=== PATIENT | male | born 1940 | race Caucasian/White ===

== ENCOUNTER 2020-07-15 15:48 | Inpatient (IN) | payer OTHER ==
[~2020-07-15] VITALS: Ht 170.2 cm; Wt 104.3 kg
[~2020-07-15 15:48] MED LIST: AMARYL2 MG PO; ANCEF 1GM1 GM/50 M2 IV; CARDURA8 MG PO; LEVEMIR SUBQ; NEURONTIN 300300 M1 PO; NORVASC 5 MG TAB5 MG PO; NORVASC5 MG PO; NOVOLOG100 UNIT/1 SUBQ; PERCOCET 5-3251 EACH PO; TOPROL XL100 MG PO; VALSARTAN-HCTZ1 EAC3 PO
[2020-07-15 16:21] LABS: ABSOLUTE EOSINOPHILS 0.2 thou/uL (0.0-0.7); ABSOLUTE LYMPHOCYTES 1.6 thou/uL (0.8-5.3); ABSOLUTE MONOCYTES 0.7 thou/uL (0.0-1.2); ABSOLUTE NEUTROPHILS 5.5 thou/uL (1.6-8.1); BASOPHILS 0.6 %; EOSINOPHILS 2.3 %; HEMATOCRIT 31.9 % (42.0-52.0); HEMOGLOBIN 10.2 gm/dL (14.0-18.0); LYMPHOCYTES 20.4 %; MCH 25.9 pg (26.0-34.0); MCHC 31.9 g/dL (28.0-37.0); MCV 81.2 fL (80.0-100.0); MONOCYTES 8.8 %; MPV 7.4 fl. (7.2-11.1); NUCLEATED RBCS 0 /100WBC; PLATELET COUNT* 284 thou/uL (150-400); POLYS 67.9 %; RBC 3.93 mil/uL (4.50-6.00)
[2020-07-15 16:27] LABS: BE 2.4 mmol/L (-2 to +3); PCO2 41.7 mmHg (35.0-45.0); pH 7.428 (7.340-7.450)
[2020-07-15 16:29] LABS: CALCIUM 9.2 mg/dL (8.5-10.1); CREATININE 1.2 mg/dL (0.6-1.3); POTASSIUM 3.6 mmol/L (3.5-5.1)
[2020-07-15 16:31] LABS: PO2 57.4 mmHg (75.0-100.0)
[2020-07-15 16:40] LABS: ALBUMIN 3.7 g/dL (3.4-5.0); TOTAL BILIRUBIN 0.5 mg/dL (<0.1-1.0); TOTAL PROTEIN 7.1 g/dL (6.4-8.2)
[2020-07-15 17:01] LABS: APTT 26.2 Seconds (25.0-31.3); INR 1.2; PROTIME 12.2 Seconds (9.20-11.50)
[2020-07-15 20:11] VITALS: BP 153/38
[2020-07-15] MEDS ORDERED: METFORMIN HCL500 M3 PO (20:56)
[2020-07-15] MEDS ORDERED: SIMVASTATIN80 MG PO (20:56)
[2020-07-15] MEDS ORDERED: HYDROCHLOROTHIA25 M2 PO (20:57)
[2020-07-15] MEDS ORDERED: COZAAR 25 MG TA25 M1 PO (20:57)
[2020-07-15] MEDS ORDERED: POTASSIUM20 PO (20:58)
[2020-07-15 23:48] VITALS: BP 147/45
[2020-07-16 03:43] VITALS: BP 155/47
[2020-07-16 05:57] LABS: CALCIUM 9.4 mg/dL (8.5-10.1); CREATININE 1.1 mg/dL (0.6-1.3); POTASSIUM 3.5 mmol/L (3.5-5.1)
[2020-07-16 06:00] LABS: MAGNESIUM 1.9 mg/dL (1.8-2.4); PHOSPHORUS* 4.1 mg/dL (2.5-4.9)
[2020-07-16 06:17] LABS: BE 5.2 mmol/L (-2 to +3); PCO2 47.9 mmHg (35.0-45.0); pH 7.422 (7.340-7.450)
[2020-07-16 08:00] VITALS: BP 136/58; BP 90/73
[2020-07-16 08:31] LABS: HEMATOCRIT 31.9 % (42.0-52.0); HEMOGLOBIN 10.2 gm/dL (14.0-18.0); MCH 25.8 pg (26.0-34.0); MCHC 31.9 g/dL (28.0-37.0); MCV 80.7 fL (80.0-100.0); MPV 7.7 fl. (7.2-11.1); RBC 3.96 mil/uL (4.50-6.00); WBC 6.7 thou/uL (4.0-11.0)
[2020-07-16 09:10] VITALS: BP 130/64
--- NOTE | 2020-07-16 11:03 | EKG ---
[place] [address] ELECTROCARDIOGRAM REPORT Name: NELLY LIVINGSTON Room: [address] ADM IN .R.#: [id number] Admission: 07/15/20 Attend Phys: Glynn Blum Discharge: Date of : 36 Date of Service: 07/15/20 1613 Report #: [id number] THIS REPORT FOR: //name// 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: CCD : 1940 Requested By: Paul Pastor Order Number: [id number] MD: Tha Greenwood Measurements Intervals [place] Rate: 68 P: [place]: QRS: 14 QRSD: 123 T: 266 QT: 461 QTc: 491 Interpretive Statements Atrial fibrillation Ventricular premature complex Left bundle branch block Baseline wander in lead(s) V5 Compared to ECG 12/05/2013 10:05:08 Ventricular premature complex(es) now present Left bundle-branch block now present Sinus rhythm no longer present Myocardial infarct finding no longer present Electronically Signed On 07-16-2020 11:03:07 DEGREASER by Tha Greenwood [email or web address] <ELECTRONICALLY SIGNED> By: Tha Greenwood MD, [facility] 07/16/20 1103 1613 161 Tha Greenwood MD, [facility] /EPI
[2020-07-16 11:35] VITALS: BP 145/57
--- NOTE | 2020-07-16 13:43 | 2DMMODE ---
[place] [address] 2 D/M-MODE ECHOCARDIOGRAM Name: NELLY LIVINGSTON Room: [address] ADM IN .[place].#: [id number] Admission: 07/15/20 Attend Phys: Glynn Blum Discharge: Date of : 36 Date of Service: 07/16/20 1342 Report #: [id number] THIS REPORT FOR: cc: Davi Bliss,Tha Fernandez MD [facility] ~ APPROVED REPORT Study performed: 07/16/2020 10:29:28 EXAM: Comprehensive 2D, Doppler, and color-flow Echocardiogram Patient Location: In-Patient Room #: [facility] Status: routine BSA: 2.15 HR: 72 bpm BP: 90/73 mmHg Rhythm: Atrial Fibrillation Other Information Study Quality: Good Indications Atrial Fibrillation Dyspnea 2D Dimensions IVSd: 13.43 (7-11mm) LVOT Diam: 20.15 (18-24mm) LVDd: 50.73 mm PWd: 11.94 (7-11mm) Ascending Ao: 34.37 (22-36mm) LVDs: 35.22 (25-40mm) Aortic Root: 32.92 mm Volumes Left Atrial Volume (Systole) LA ESV Index: 61.20 mL/m2 Aortic Valve AoV Peak Jake.: 1.52 m/s AO Peak Gr.: 9.19 mmHg LVOT Max P.84 mmHg AO Mean Gr.: 5.53 mmHg LVOT Mean P.36 mmHg LVOT Max V: 0.84 m/s AO V2 VTI: 36.05 cm LVOT Mean V: 0.52 m/s DARRON (VTI): 1.92 cm2 LVOT V1 VTI: 21.68 [place] [address] 2 D/M-MODE ECHOCARDIOGRAM Name: NELLY LIVINGSTON Room: [address] IN [facility].#: [id number] Admission: 07/15/20 Attend Phys: Glynn Blum Discharge: Date of : 36 Date of Service: 07/16/20 1342 Report #: [id number] TDI Medial E' Jake.: 0.10 m/s Lateral E' Jake.: 0.15 m/s Pulmonary Valve PV Peak Jake.: 1.12 m/s PV Peak Gr.: 5.06 mmHg Tricuspid Valve RAP Estimate: 10.00 mmHg TR Peak Gr.: 47.29 mmHg RVSP: 57.00 mmHg PA Pressure: 57.00 mmHg Left Ventricle The left ventricle is normal size. There is normal LV segmental wall motion. Mild concentric left ventricular hypertrophy. Left ventricular systolic function is normal. LVEF is 55-60%. This study is not technically sufficient to allow evaluation of the LV diastolic function due to atrial fibrillation. Right Ventricle The right ventricle is normal size. The right ventricular systolic function is normal. Atria Left atrium is moderately dilated. Right atrium is mildly dilated. Aortic Valve Mild aortic valve sclerosis. No aortic regurgitation is present. Mild aortic stenosis. Mitral Valve The mitral valve is normal in structure. Mild mitral regurgitation. No evidence of mitral valve stenosis. Tricuspid Valve The tricuspid valve is normal in structure. Mild tricuspid regurgitation. Moderate pulmonary hypertension. The RVSP is 55 mmHg. Pulmonic Valve The pulmonary valve is normal in structure. There is no pulmonic valvular regurgitation. [place] [address] 2 D/M-MODE ECHOCARDIOGRAM Name: NELLY LIVINGSTON Room: [address] IN .R.#: [id number] Admission: 07/15/20 Attend Phys: Glynn Blum Discharge: Date of : 36 Date of Service: 07/16/20 1342 Report #: [id number] The aortic root is normal in size. IVC is dilated and collapses >50% with inspiration. Pericardium There is no pericardial effusion. <Conclusion> The left ventricle is normal size. Mild concentric left ventricular hypertrophy. Left ventricular systolic function is normal. LVEF is 55-60%. This study is not technically sufficient to allow evaluation of the LV diastolic function due to atrial fibrillation. Left atrium is moderately dilated. Right atrium is mildly dilated. Mild aortic valve sclerosis. Mild aortic stenosis. Mild mitral regurgitation. Mild tricuspid regurgitation. Moderate pulmonary hypertension. The RVSP is 55 mmHg. IVC is dilated and collapses >50% with inspiration. <ELECTRONICALLY SIGNED> By: Tha Greenwood MD, FACC 07/16/20 134 134 41 Tha Greenwood MD, FACC /INF
[2020-07-16 16:00] VITALS: BP 119/68
[2020-07-16 23:43] VITALS: BP 135/59
[2020-07-17 04:00] VITALS: BP 133/58
[2020-07-17 04:16] LABS: HEMATOCRIT 31.1 % (42.0-52.0); MCH 25.7 pg (26.0-34.0); MCHC 32.2 g/dL (28.0-37.0); MCV 79.9 fL (80.0-100.0); MPV 7.5 fl. (7.2-11.1); RBC 3.9 mil/uL (4.50-6.00); RDW-CV 15.9 % (10.5-14.5); WBC 9.1 thou/uL (4.0-11.0)
[2020-07-17 04:31] LABS: ALBUMIN 3.5 g/dL (3.4-5.0); CALCIUM 8.9 mg/dL (8.5-10.1); CREATININE 1.2 mg/dL (0.6-1.3); POTASSIUM 3.2 mmol/L (3.5-5.1); TOTAL BILIRUBIN 0.5 mg/dL (<0.1-1.0)
[2020-07-17 08:28] VITALS: BP 147/46
[2020-07-17 12:00] VITALS: BP 150/57
--- NOTE | 2020-07-17 15:34 | EKG ---
[place] [address] ELECTROCARDIOGRAM REPORT Name: NELLY LIVINGSTON Room: [address] ADM IN M.R.#: [id number] Admission: 07/15/20 Attend Phys: Glynn Blum Discharge: Date of : 36 Date of Service: 07/17/20 0844 Report #: [id number] THIS REPORT FOR: //name// [facility] Test Date: 2020-07-17 Test Time: 08:44:42 Pat Name: NELLY LIVINGSTON Department: Room: [address] Gender: M Gym Instructor: : 1940 Requested By: Lawanda Wilson Order Number: [id number] Sil MD: Amadou Landa Measurements Intervals [place] Rate: 64 P: [place]: QRS: 26 QRSD: 118 T: QT: 455 QTc: 470 Interpretive Statements Atrial fibrillation Incomplete left bundle branch block Compared to ECG 07/15/2020 16:13:06 Ventricular premature complex(es) no longer present Electronically Signed On 07-17-2020 15:34:10 PROTECTIVE SERVICES OFFICER by Amadou Landa [email or web address] <ELECTRONICALLY SIGNED> By: Amadou Landa MD, [facility] 07/17/20 1534 0844 0844 Amadou Landa MD, [facility] /EPI
[2020-07-17 16:30] VITALS: BP 132/54
[2020-07-17 20:00] VITALS: BP 133/46
[2020-07-18] VITALS (19 sets, daily range): BP systolic 120–188; BP diastolic 61–74
--- NOTE | 2020-07-18 09:46 | EKG ---
[place] [address] ELECTROCARDIOGRAM REPORT Name: NELLY LIVINGSTON JAYY Room: [address] ADM IN M.R.#: [id number] Admission: 07/15/20 Attend Phys: Glynn Blum Discharge: Date of : 36 Date of Service: 07/18/20810 Report #: [id number] THIS REPORT FOR: //name// [facility] Test Date: 2020-07-18 Test Time: 08:11:30 Pat Name: NELLY LIVINGSTON Department: Room: [address] Gender: M Surgical Services Manager: : 1940 Requested By: Lawanda Wilson Order Number: [id number] Sil MD: Tha Greenwood Measurements Intervals [place] Rate: 65 P: [place]: QRS: 26 QRSD: 123 T: 192 QT: 476 QTc: 495 Interpretive Statements Atrial fibrillation Left bundle branch block Compared to ECG 07/17/2020 08:44:42 No significant changes Electronically Signed On 07-18-2020 9:46:01 HEADER SETUP OPERATOR by Tha Greenwood [email or web address] <ELECTRONICALLY SIGNED> By: Tha Greenwood MD, FACC 07/18/20 0946 0 0 Tha Greenwood MD, [facility] /EPI
--- NOTE | 2020-07-18 09:46 | EKG ---
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 Mender: AMADA : 1940 Requested By: Tha Greenwood Order Number: [id number] Reading MD: Tha Greenwood Measurements Intervals [place] Rate: 64 P: 88 VA: 295 QRS: 8 QRSD: 128 T: 193 QT: 471 QTc: 486 Interpretive Statements Atrial fibrillation left bundle branch block Compared to ECG 07/18/2020 08:11:30 No significant changes noted Electronically Signed On 07-18-2020 9:46:29 TRAFFIC ATTENDANT by Tha Greenwood [email or web address] <ELECTRONICALLY SIGNED> By: Tha Greenwood MD, FACC 07/18/20 0946 5 5 Tha Greenwood MD, [facility] /EPI
[2020-07-18 10:43] LABS: CALCIUM 9.2 mg/dL (8.5-10.1); CREATININE 1.2 mg/dL (0.6-1.3); POTASSIUM 3.4 mmol/L (3.5-5.1)
--- NOTE | 2020-07-18 14:07 | TEE ---
[place] [address] TRANSESOPHAGEAL ECHOCARDIOGRAM Name: NELLY LIVINGSTON Room: [address] IN .[place].#: [id number] Admission: 07/15/20 Attend Phys: Glynn Blum Discharge: Date of : 36 Date of Service: 07/18/20 1407 Report #: [id number] THIS REPORT FOR: cc: Davi Bliss Vincent R. DO Liston, Michael J. MD [facility] ~ APPROVED REPORT Study performed: 07/18/2020 08:43:55 EXAM: Comprehensive 2D, Doppler, and color-flow Echocardiogram Patient Location: In-Patient Room #: [facility] Status: routine BSA: 2.15 HR: 62 bpm BP: 162/58 mmHg Rhythm: Atrial Fibrillation Other Information Study Quality: Good Indications Atrial Fibrillation Echo Enhancing Agent Indication: Rule out Shunt Agent(s) / Amount(s) Used: Agitated Saline 10 cc Procedure After obtaining informed consent, patient underwent transesophageal echo in the [employer]. Type of Sedation : Conscious Sedation Sedation was administered by Elicia Serra RN. Sedation start time: 845 Case end Time: 905 Sedation was achieved intravenously with: Versed (3) Fentanyl (75) Transesophageal probe was inserted and advanced into esophagus without difficulty by Tha Greenwood MD, [facility]. Echo enhancement indication: R/O Septal defect. Echo enhancement agent administered: Agitated Saline The CATHY was performed without complications. Synchronized Cardioversion acheived with 360 Joules after 1 [facility] [address] [place] [address] TRANSESOPHAGEAL ECHOCARDIOGRAM Name: NELLY LIVINGSTON Room: [address]#: [id number] Admission: 07/15/20 Attend Phys: Glynn Blum Discharge: Date of : 36 Date of Service: 07/18/20 1407 Report #: [id number] attempt(s). Rhythm following Synchronized Cardioversion: Normal Sinus Rhythm Throughout the procedure, the blood pressure, pulse oximetry, cardiac rhythm, and rate were monitored. The patient tolerated the procedure without adverse effects. Recovery from conscious sedation was uneventful and vital signs were stable. Left Ventricle The left ventricle is normal size. There is normal LV segmental wall motion. There is normal left ventricular wall thickness. Left ventricular systolic function is normal. LVEF is 55-60%. Right Ventricle The right ventricle is normal size. The right ventricular systolic function is normal. Atria The left atrium size is normal. No thrombus is visualized in the left atrium or appendage. The interatrial septum is intact with no evidence for an atrial septal defect. The right atrium size is normal. Aortic Valve The aortic valve is normal in structure. No aortic regurgitation is present. There is no aortic valvular stenosis. Mitral Valve The mitral valve is normal in structure. Moderate mitral regurgitation. No evidence of mitral valve stenosis. Tricuspid Valve The tricuspid valve is normal in structure. Mild tricuspid regurgitation. Pulmonic Valve The pulmonary valve is normal in structure. There is no pulmonic valvular regurgitation. Great Vessels The aortic root is normal in size. Atherosclerotic plaque is present in the descending aorta. Pericardium There is no pericard[place] [address] TRANSESOPHAGEAL ECHOCARDIOGRAM Name: NELLY LIVINGSTON Room: [address] IN .R.#: [id number] Admission: 07/15/20 Attend Phys: Glynn Blum Discharge: Date of : 36 Date of Service: 07/18/201406 Report #: [id number] <Conclusion> The left ventricle is normal size. There is normal left ventricular wall thickness. Left ventricular systolic function is normal. LVEF is 55-60%. The interatrial septum is intact with no evidence for an atrial septal defect. No thrombus is visualized in the left atrium or appendage. Moderate mitral regurgitation. Mild tricuspid regurgitation. <ELECTRONICALLY SIGNED> By: Tha Greenwood MD, [facility] 07/18/201406 06 1407 Tha Greenwood MD, FACC /INF
[2020-07-19] VITALS (7 sets, daily range): BP systolic 144–186; BP diastolic 45–73
[2020-07-19 04:42] LABS: HEMATOCRIT 32.8 % (42.0-52.0); HEMOGLOBIN 10.4 gm/dL (14.0-18.0); MCH 25.6 pg (26.0-34.0); MCHC 31.7 g/dL (28.0-37.0); MCV 80.8 fL (80.0-100.0); MPV 7.7 fl. (7.2-11.1); RBC 4.07 mil/uL (4.50-6.00); RDW-CV 16.1 % (10.5-14.5)
[2020-07-19 05:06] LABS: ALBUMIN 3.5 g/dL (3.4-5.0); CALCIUM 9.2 mg/dL (8.5-10.1); CREATININE 1.1 mg/dL (0.6-1.3); MAGNESIUM 2.3 mg/dL (1.8-2.4); POTASSIUM 3.6 mmol/L (3.5-5.1); TOTAL BILIRUBIN 0.8 mg/dL (<0.1-1.0); TOTAL PROTEIN 7.2 g/dL (6.4-8.2)
--- NOTE | 2020-07-19 09:37 | EKG ---
[place] [address] ELECTROCARDIOGRAM REPORT Name: NELLY LIVINGSTON Room: [address] ADM IN M.R.#: [id number] Admission: 07/15/20 Attend Phys: Glynn Blum Discharge: Date of : 36 Date of Service: 07/19/20818 Report #: [id number] THIS REPORT FOR: //name// [facility] Test Date: 2020-07-19 Test Time: 08:19:12 Pat Name: NELLY LIVINGSTON Department: Room: [address] Gender: M Medical Receptionist: : 1940 Requested By: Lawanda Wilson Order Number: [id number] Sil MD: Amadou Landa Measurements Intervals [place] Rate: 71 P: 33 OR: 325 QRS: 22 QRSD: 126 T: QT: 469 QTc: 510 Interpretive Statements Sinus rhythm Prolonged OR interval Minor IVCD of the left type Baseline wander in lead(s) I,II,aVR Compared to ECG 07/18/2020 09:16:06 First degree AV block now present Electronically Signed On 07-19-2020 9:37:09 TURBINE MEASUREMENTS ENGINEER by Amadou Landa [email or web address] <ELECTRONICALLY SIGNED> By: Amadou Landa MD, [facility] 07/19/2037 8 8 Amadou Landa MD, [facility] /EPI
[2020-07-20 04:00] VITALS: BP 97/50
[2020-07-20 08:00] VITALS: BP 164/58
[2020-07-20 12:31] VITALS: BP 152/57
[2020-07-20 15:53] VITALS: BP 156/50
[2020-07-20 19:40] VITALS: BP 164/63
[2020-07-20 23:29] VITALS: BP 127/55
[2020-07-21 03:26] VITALS: BP 93/63
[2020-07-21 05:07] LABS: HEMATOCRIT 31.7 % (42.0-52.0); HEMOGLOBIN 10.2 gm/dL (14.0-18.0); MCH 25.6 pg (26.0-34.0); MCHC 32.3 g/dL (28.0-37.0); MCV 79.3 fL (80.0-100.0); MPV 7.3 fl. (7.2-11.1); RDW-CV 16.1 % (10.5-14.5); WBC 8.8 thou/uL (4.0-11.0)
[2020-07-21 05:29] LABS: ALBUMIN 3.1 g/dL (3.4-5.0); CALCIUM 9.1 mg/dL (8.5-10.1); CREATININE 1.1 mg/dL (0.6-1.3); POTASSIUM 3.3 mmol/L (3.5-5.1); TOTAL BILIRUBIN 0.6 mg/dL (<0.1-1.0); TOTAL PROTEIN 6.8 g/dL (6.4-8.2)
[2020-07-21 07:45] VITALS: BP 143/77
[2020-07-21] MEDS ORDERED: ELIQUIS5 MG PO (09:59)
[2020-07-21] MEDS ORDERED: NORVASC10 MG PO (09:59)
[2020-07-21] MEDS ORDERED: PACERONE 200 M200 M1 PO (09:59)
[2020-07-21] MEDS ORDERED: GLYBURIDE 5 MG T5 M1 PO (10:06)
[2020-07-21] MEDS ORDERED: PREDNISONE 10 M10 M1 PO (10:06)
[2020-07-21] MEDS ORDERED: CEFDINIR300 MG PO (10:06)
[2020-07-21] MEDS ORDERED: LASIX 40 MG TAB40 M1 PO (10:06)
[2020-07-21 11:52] VITALS: BP 143/77
== END 2020-07-21 13:15 | disposition home or self-care (01) | DRG 177 ==
LOC: M.ERS 15:48 → M.2W 16:38 → M.TBA-ER 16:38 → M.2W 20:25
PROVIDERS: Emergency Medicine; Internal Medicine; Registered Nurse; ADMIT Internal Medicine; ATTEND Internal Medicine
PROC: B24BZZ4 Ultrasonography of Heart with Aorta, Transesophageal (ICD-10-PCS; principal; 2020-07-18)
PROC: 5A09357 Assistance with Respiratory Ventilation, Less than 24 Consecutive Hours, Continuous Positive Airway Pressure (ICD-10-PCS; 2020-07-19)
PROC: 5A2204Z Restoration of Cardiac Rhythm, Single (ICD-10-PCS; 2020-07-20)
PROC: 5A09357 Assistance with Respiratory Ventilation, Less than 24 Consecutive Hours, Continuous Positive Airway Pressure (ICD-10-PCS; 2020-07-20)
PROC: 5A09357 Assistance with Respiratory Ventilation, Less than 24 Consecutive Hours, Continuous Positive Airway Pressure (ICD-10-PCS; 2020-07-21)
DX: J15.6 Pneumonia due to other Gram-negative bacteria (principal); J96.01 Acute respiratory failure with hypoxia; I50.33 Acute on chronic diastolic (congestive) heart failure; J91.8 Pleural effusion in other conditions classified elsewhere; J44.1 Chronic obstructive pulmonary disease with (acute) exacerbation; J44.0 Chronic obstructive pulmonary disease with (acute) lower respiratory infection; I11.0 Hypertensive heart disease with heart failure; I95.9 Hypotension, unspecified; I48.91 Unspecified atrial fibrillation; E11.9 Type 2 diabetes mellitus without complications; E78.5 Hyperlipidemia, unspecified; I25.10 Atherosclerotic heart disease of native coronary artery without angina pectoris; I65.23 Occlusion and stenosis of bilateral carotid arteries; Z20.822 Contact with and (suspected) exposure to COVID-19; Z79.4 Long term (current) use of insulin; Z98.1 Arthrodesis status; Z79.899 Other long term (current) drug therapy; Z87.891 Personal history of nicotine dependence; Z95.1 Presence of aortocoronary bypass graft

== ENCOUNTER 2020-08-14 00:23 | Observation (INO) | payer OTHER ==
[2020-08-14] VITALS (7 sets, daily range): BP systolic 121–149; BP diastolic 39–97
[~2020-08-14] VITALS: Ht 170.2 cm; Wt 108.7 kg
[~2020-08-14 00:23] MED LIST changes: +CEFDINIR300 MG PO; +COZAAR 25 MG TA25 M1 PO; +ELIQUIS5 MG PO; +GLYBURIDE 5 MG T5 M1 PO; +HYDROCHLOROTHIA25 M2 PO; +LASIX 40 MG TAB40 M1 PO; +METFORMIN HCL500 M3 PO; +NORVASC10 MG PO; +PACERONE 200 M200 M1 PO; +POTASSIUM20 PO; +PREDNISONE 10 M10 M1 PO; +SIMVASTATIN80 MG PO
[2020-08-14] MEDS ORDERED: HYDRALAZINE 5050 MG PO (00:42)
[2020-08-14 01:07] LABS: ABSOLUTE EOSINOPHILS 0.2 thou/uL (0.0-0.7); ABSOLUTE LYMPHOCYTES 1.3 thou/uL (0.8-5.3); ABSOLUTE MONOCYTES 0.6 thou/uL (0.0-1.2); ABSOLUTE NEUTROPHILS 4.9 thou/uL (1.6-8.1); BASOPHILS 0.7 %; EOSINOPHILS 3.1 %; HEMATOCRIT 29.3 % (42.0-52.0); HEMOGLOBIN 9.2 gm/dL (14.0-18.0); MCH 25.5 pg (26.0-34.0); MCHC 31.2 g/dL (28.0-37.0); MCV 81.8 fL (80.0-100.0); MONOCYTES 8.5 %; MPV 7.4 fl. (7.2-11.1); NUCLEATED RBCS 0 /100WBC; PLATELET COUNT* 276 thou/uL (150-400); POLYS 69.7 %; RBC 3.59 mil/uL (4.50-6.00); RDW-CV 18.7 % (10.5-14.5)
[2020-08-14 01:15] LABS: CALCIUM 9.1 mg/dL (8.5-10.1); CREATININE 1.6 mg/dL (0.6-1.3); POTASSIUM 3.8 mmol/L (3.5-5.1)
[2020-08-14 01:17] LABS: INR 1.3; PROTIME 13.2 Seconds (9.20-11.50)
[2020-08-14 01:25] LABS: ALBUMIN 3.7 g/dL (3.4-5.0); MAGNESIUM 1.8 mg/dL (1.8-2.4); TOTAL BILIRUBIN 0.6 mg/dL (<0.1-1.0)
[2020-08-14 09:29] LABS: CALCIUM 9.5 mg/dL (8.5-10.1); CREATININE 1.6 mg/dL (0.6-1.3); POTASSIUM 3.9 mmol/L (3.5-5.1)
--- NOTE | 2020-08-14 10:13 | EKG ---
[place] [address] ELECTROCARDIOGRAM REPORT Name: NELLY LIVINGSTON Room: [address] M.R.#: [id number] Admission: 08/14/20 Attend Phys: Fanny Hussein, Discharge: Date of : 36 Date of Service: 08/14/20 0030 Report #: [id number] THIS REPORT FOR: //name// [facility] ED Test Date: 2020-08-14 Test Time: 00:30:15 Pat Name: NELLY LIVINGSTON Department: Room: [facility] Gender: M Analyst Microbiology Lab: : 1940 Requested By: Tara Hernández Order Number: [id number] MD: Amadou Landa Measurements Intervals [place] Rate: 74 P: [place]: QRS: 29 QRSD: 125 T: 224 QT: 402 QTc: 446 Interpretive Statements Atrial fibrillation with pvc's Left bundle branch block Compared to ECG 07/19/2020 08:19:12 Left bundle-branch block now present Sinus rhythm no longer present First degree AV block no longer present Intraventricular conduction delay persists Electronically Signed On 08-14-2020 10:13:44 CDT by Amadou Landa [email or web address] <ELECTRONICALLY SIGNED> By: Amadou Landa MD, [facility] 08/14/20 1013 Amadou Landa MD, [facility] /EPI
[2020-08-15 04:48] VITALS: BP 111/47
[2020-08-15 08:00] VITALS: BP 144/37
[2020-08-15 10:57] LABS: CALCIUM 9.2 mg/dL (8.5-10.1); CREATININE 1.5 mg/dL (0.6-1.3); POTASSIUM 3.8 mmol/L (3.5-5.1)
[2020-08-15] MEDS ORDERED: PACERONE 200 M200 M1 PO (11:50)
[2020-08-15 12:20] VITALS: BP 124/36
[2020-08-15 12:25] VITALS: BP 124/36
== END 2020-08-15 15:18 | disposition home or self-care (01) ==
LOC: M.ERS 00:23 → M.TBA-ER 01:53 → M.2W 01:53 → M.TBA-ER 01:53 → M.2W 03:12
PROVIDERS: Emergency Medicine; Registered Nurse; ADMIT Internal Medicine; ATTEND Internal Medicine
DX: I11.0 Hypertensive heart disease with heart failure (principal); I50.33 Acute on chronic diastolic (congestive) heart failure; I48.0 Paroxysmal atrial fibrillation; Z20.822 Contact with and (suspected) exposure to COVID-19; I25.10 Atherosclerotic heart disease of native coronary artery without angina pectoris; E78.5 Hyperlipidemia, unspecified; N28.9 Disorder of kidney and ureter, unspecified; I65.23 Occlusion and stenosis of bilateral carotid arteries; G47.33 Obstructive sleep apnea (adult) (pediatric); E66.9 Obesity, unspecified; Z79.899 Other long term (current) drug therapy; Z95.5 Presence of coronary angioplasty implant and graft; Z68.37 Body mass index [BMI] 37.0-37.9, adult